=== PATIENT | male | born 1970 | race Two or more races ===

== ENCOUNTER 2016-11-18 18:26 | Inpatient (IN) | payer BC ==
[~2016-11-18] VITALS: Ht 185.4 cm; Wt 89.3 kg
[2016-11-18 18:45] VITALS: BP 113/72; PULSE 60; RESP 18
[2016-11-18 18:46] VITALS: Ht 185.4 cm; Wt 89.3 kg
[2016-11-18] MEDS ORDERED: ACETAMINOPHEN 1000MG/100ML IV 100 ML IVPB PRN (19:00)
[2016-11-18] MEDS ORDERED: ONDANSETRON 4 MG INJ IV PRN (19:00)
[2016-11-18] MEDS ORDERED: morphine 4 MG/ML VIAL IV PRN (19:00)
[2016-11-18 20:12] VITALS: BP 125/76; RESP 18
--- NOTE | 2016-11-18 20:41 | HP ---
DATE OF ADMISSION: 11/18/2016 CHIEF COMPLAINT: Lower abdominal pain. HISTORY OF PRESENT ILLNESS: The patient is a chief 46-year-old gentleman with a remote history of Crohn's disease diagnosed in [place]; however, he has not had any flare up and used to take sulfasalazine in the past but has not been taking it for a long time. The patient on Thursday night developed right lower quadrant pain, but he did not seek medical advice and thought that it was due to food poisoning. The patient subsequently developed increasing pain today and went to [facility]. He also reported the pain was mostly in the lower abdomen, more on the right side. The patient did not have any vomiting. The patient underwent CT of the abdomen and pelvis which revealed acute appendicitis, trace fluid within the deep pelvic for which an underlying perforated appendix could not be excluded. The patient also noted to have bilateral spondylosis. The patient was afebrile and was not tachycardic. White count was 11.3 and the patient was subsequently transferred to [facility] due to insurance reasons. The patient denies any chest pain or shortness of breath. No reported fever or chills. No reported hematemesis or melena. No reported headache and syncope. The rest of the systems unremarkable. PAST MEDICAL HISTORY: As stated above. SOCIAL HISTORY: No significant history of smoking or alcohol abuse. FAMILY HISTORY: Patient's father has prostate cancer and also has hypertension and diabetes. PHYSICAL EXAMINATION: GENERAL APPEARANCE: The patient conscious, awake, alert. VITAL SIGNS: Temperature 97.8, pulse 60, respirations 18, blood pressure 113/72. HEENT: No eye discharge or redness. Extraocular movement intact. Oropharynx clear. NECK: Supple. No thyromegaly. CHEST: Chest is fairly clear. CARDIAC: The heart sounds normal. No murmur. ABDOMEN: Soft. Nondistended. Lower abdominal tenderness present. No rebound tenderness or guarding. EXTREMITIES: No leg edema. NEUROLOGIC: The patient is awake, alert, fairly oriented, with no gross focal deficit. LABORATORY DATA: Hemoglobin 14.5, WBC 11.3, platelets 168. Sodium 136, potassium 3.7, BUN 10, creatinine 0.8, glucose 143, albumin 4.1, calcium 9.2, bilirubin 0.8, AST 23, ALT 22, alk phos 122. PTT 28.6, PT 14.1. IMPRESSION: Acute appendicitis with a small amount of free fluid, underlying perforated appendicitis could not be ruled out. PLAN: Patient admitted on medical floor. Patient will be started on IV Zosyn, IV fluid and symptomatic treatment. Dr. Barriga has been called from a surgery standpoint. The patient clinically does appear toxic. Further hospital course. Dictated By: Neymar Hilton MD /lillian/hattie /Document#: [id number]
[2016-11-18] MEDS: D5W-0.45 NACL + KCL 20 MEQ 1,000 ML IV SCH (21:08)
[2016-11-18] MEDS: PIPER-TAZO 3.375 GM IV (PMX) 100 ML IVPB SCH (21:08)
[2016-11-19] MEDS: PIPER-TAZO 3.375 GM IV (PMX) 100 ML IVPB SCH ×2 (02:03→06:33)
[2016-11-19 02:12] VITALS: BP 107/67; RESP 18
[2016-11-19] MEDS: D5W-0.45 NACL + KCL 20 MEQ 1,000 ML IV SCH ×2 (05:00→06:33)
[2016-11-19 06:15] LABS: BASOPHIL # 0.1 10^3/ul (0.0-0.1); BASOPHILS % 0.8 % (0.0-2.0); EOSINOPHILS # 0.2 10^3/ul (0.0-0.5); EOSINOPHILS % 3.5 % (0.0-7.0); HEMATOCRIT 39.7 % (42.0-52.0); HEMOGLOBIN 13.2 g/dl (14.0-18.0); LYMPHOCYTES # 1.4 10^3/ul (0.8-2.9); LYMPHOCYTES % 22.4 % (15.0-51.0); MEAN CORPUSCULAR HEMOGLOBIN 29.3 pg (29.0-33.0); MEAN CORPUSCULAR HGB CONC 33.2 g/dl (32.0-37.0); MEAN CORPUSCULAR VOLUME 88.2 fl (82.0-101.0); MEAN PLATELET VOLUME 11.6 fl (7.4-10.4); MONOCYTE # 0.4 10^3/ul (0.3-0.9); MONOCYTES % 6.9 % (0.0-11.0); NEUTROPHILS % 66.2 % (39.0-77.0); PLATELET COUNT 165 10^3/UL (140-415); RED CELL DISTRIBUTION WIDTH 13.5 % (11.5-14.5); WHITE BLOOD COUNT 6.4 10^3/ul (4.8-10.8)
[2016-11-19 06:47] LABS: ALBUMIN 3.8 g/dl (3.3-4.9); ALBUMIN/GLOBULIN RATIO 1.18; CALCIUM 8.8 mg/dl (8.4-10.2); CREATININE 1.02 mg/dl (0.61-1.24); POTASSIUM 3.8 mmol/L (3.5-5.1)
[2016-11-19 07:40] VITALS: BP 93/54; RESP 19
--- NOTE | 2016-11-19 13:57 | DS ---
Date/Time of Note Date/Time of Note DATE: 11/19/16 TIME: 13:57 Discharge Summary Admission/Discharge Info Admit Date/Time Nov 18, 2016 at 18:26 Discharge Date/Time Nov 19, 2016 at 11:55 Hospital Course PATIENT LEFT AMA Primary Care Provider Not On Staff Doctor Pending Labs Laboratory Tests Test 11/19/16 05:46 White Blood Count 6.410^3/ul (4.8-10.8) Red Blood Count 4.5010^6/ul (4.70-6.10) Hemoglobin 13.2g/dl (14.0-18.0) Hematocrit 39.7% (42.0-52.0) Mean Corpuscular Volume 88.2fl (82.0-101.0) Mean Corpuscular Hemoglobin 29.3pg (29.0-33.0) Mean Corpuscular Hemoglobin Concent 33.2g/dl (32.0-37.0) Red Cell Distribution Width 13.5% (11.5-14.5) Platelet Count 68679^3/UL (140-415) Mean Platelet Volume 11.6fl (7.4-10.4) Neutrophils % 66.2% (39.0-77.0) Lymphocytes % 22.4% (15.0-51.0) Monocytes % 6.9% (0.0-11.0) Eosinophils % 3.5% (0.0-7.0) Basophils % 0.8% (0.0-2.0) Nucleated Red Blood Cells % 0.0/100WBC (0.0-0.0) Neutrophils # (Manual) 4.210^3/ul (1.7-7.5) Lymphocytes # 1.410^3/ul (0.8-2.9) Monocytes # 0.410^3/ul (0.3-0.9) Eosinophils # 0.210^3/ul (0.0-0.5) Basophils # 0.110^3/ul (0.0-0.1) Nucleated Red Blood Cells # 0.010^3/ul (0.0-0.0) Sodium Level 142mmol/L (135-144) Potassium Level 3.8mmol/L (3.5-5.1) Chloride Level 104mmol/L (97-110) Carbon Dioxide Level 30mmol/L (21-31) Anion Gap 12 (8-16) Blood Urea Nitrogen 9mg/dl (7-20) Creatinine 1.02mg/dl (0.61-1.24) Glucose Level 107mg/dl (70-220) Calcium Level 8.8mg/dl (8.4-10.2) Total Bilirubin 1.0mg/dl (0.2-1.3) Direct Bilirubin 0.00mg/dl (0.00-0.20) Indirect Bilirubin 1.0mg/dl (0-1.1) Aspartate Amino Transf (AST/SGOT) 23IU/L (15-46) Alanine Aminotransferase (ALT/SGPT) 32IU/L (13-69) Alkaline Phosphatase 110IU/L (42-121) Total Protein 7.0g/dl (6.1-8.1) Albumin 3.8g/dl (3.3-4.9) Globulin 3.20g/dl (1.3-3.2) Albumin/Globulin Ratio 1.18 RENNY VEGA Nov 19, 2016 13:57
== END 2016-11-19 11:55 | disposition left against medical advice (07) | DRG 395 ==
LOC: MS2 18:26
PROVIDERS: ADMIT Internal Medicine; ATTEND Internal Medicine
DX: K35.80 Unspecified acute appendicitis (principal)
CPT/HCPCS: 80053; 85025; J2543; J3480